=== PATIENT | female | born 1995 | race Caucasian/White ===

== ENCOUNTER → 2021-11-14 | Day surgery (SDC) | payer OTHER ==
[~2021-11-14] VITALS: Ht 170.2 cm; Wt 100.0 kg
[~2021-11-14] MED LIST: IV RINGERS,LACTATED 1000ML 1,000 ML IV SCH; LIDOCAINE 2% PF 5 ML VIAL. ONE; OMEP20CA16 PO; OMEP40CA7 PO; ONDA-84 PO; PROPOFOL 10 MG/ML (20ML) VIAL. IV ONE
[2021-11-14 07:33] VITALS: BP 144/76
[2021-11-14 09:04] VITALS: BP 121/78
--- NOTE | 2021-11-14 12:56 | CONS ---
DATE OF CONSULTATION: 11/14/2021 UPDATED HISTORY AND PHYSICAL REFERRING PHYSICIAN: Sherman Yoder MD. REASON FOR CONSULTATION: Recurrent nausea and vomiting, status post cholecystectomy. HISTORY OF PRESENT ILLNESS: A 26-year-old female with past medical history significant for gastroesophageal reflux disease, nausea, vomiting, weight loss, status post cholecystectomy seen with recurrent symptoms after having her gallbladder out due to symptomatic sludge and stones. She was improved for several weeks, has had recurrence of her symptoms. She has lost approximately 45 pounds. Lab work including thyroid function tests and blood sugars as well as abdominal imaging, has been unrevealing for additional pathology with recurrent symptoms despite Zofran and omeprazole. She requests additional evaluation. PAST MEDICAL HISTORY: GERD, status post cholecystectomy. ALLERGIES: PENICILLIN, CEFACLOR AND CEPHALEXIN. MEDICATIONS: Include Omeprazole, ondansetron. FAMILY HISTORY: Significant for breast cancer, myocardial infarction, hypertension with grandparent, ovarian cancer with her mother. CVA with her grandfather. PAST SURGICAL HISTORY: Significant for cholecystectomy. REVIEW OF SYSTEMS: Per records. PHYSICAL EXAMINATION: GENERAL: Reveals a well-nourished, well-developed female who is alert, cooperative, in no acute distress. VITAL SIGNS: Temperature 97.8, pulse 100, respiratory rate 18. LUNGS: Clear. CARDIOVASCULAR: Reveals an S1, S2, without S3, S4 or appreciable murmur. ABDOMEN: Reveals a soft abdomen, normal bowel sounds, without appreciable hepatosplenomegaly. EXTREMITIES: Reveals no cyanosis, clubbing or edema. IMPRESSION: Nausea, vomiting, weight loss, status post cholecystectomy. Differential includes malignancy, gastroparesis, eosinophilic, gastroenteritis, celiac disease, exocrine pancreatic insufficiency and malabsorption. Therefore, recommend upper endoscopy, possible biopsy. If this is unrevealing, gastric emptying study and small bowel series to assess for Crohn's disease and gastric emptying study would be pursued. PAMELA DR: Linda TID: [id number]
--- NOTE | 2021-11-16 17:08 | PATHOLOGY ---
[facility] Accession Number: [id number] . 01 Material submitted: . duodenum - DUODENAL BIOPSY R/O CELIAC . 01 Clinical history: . NAUSEA, VOMITING EGD . 02 Diagnosis: Duodenal biopsies: - No diagnostic abnormalities. (JPM:pit; 11/16/2021) QTP 11/16/2021 1647 Local . 02 Comment: Sections of the duodenal biopsy reveal multiple segments of duodenal and small intestine mucosa containing several mucosal associated lymphoid nodules. Where best oriented, the mucosal villi show no sprue-like changes or significant inflammatory changes. (JPM:pit; 11/16/2021) . 02 Electronically signed: . Lanre Ruano MD, Pathologist NPI- [id number] . 01 Gross description: . The specimen is received in formalin, labeled "Humphries, Jenni, duodenal bx's r/o celiac" and consists of multiple ruiz irregular tissues aggregating 1.2 x 0.7 x 0.2 cm which are filtered and submitted in toto in A1.(BLACKFEET; 11/15/2021) DKA/DKA 11/16/2021 1235 Local . 02 Pathologist provided ICD-10: R11.2 . 02 CPT . 184923 Specimen Comment: A courtesy copy of this report has been sent to [phone] Specimen Comment: Report sent to Performed at: 01 [facility] [address] [facility] [address], [place] [id number] MD Víctor German MD Phone: [phone] Performed at: 02 [facility] [address] [place], [place] [id number] MD Lanre Ruano MD Phone: [phone]
== END | disposition home or self-care (01) ==
LOC: SURG 07:15
PROVIDERS: ATTEND Internal Medicine Gastroenterology
DX: R11.2 Nausea with vomiting, unspecified (principal); R63.4 Abnormal weight loss; K31.89 Other diseases of stomach and duodenum; K21.9 Gastro-esophageal reflux disease without esophagitis; E66.9 Obesity, unspecified; Z90.49 Acquired absence of other specified parts of digestive tract; Z98.890 Other specified postprocedural states; Z79.899 Other long term (current) drug therapy; Z80.3 Family history of malignant neoplasm of breast; Z82.49 Family history of ischemic heart disease and other diseases of the circulatory system; Z20.822 Contact with and (suspected) exposure to COVID-19
CPT/HCPCS: 43239; 81025; 87426; J2704